=== PATIENT | female | born 1990 | race Caucasian/White ===

== ENCOUNTER 2016-12-23 08:07 | Emergency (ER) | payer SELFPAY ==
[2016-12-23 08:29] VITALS: BP 120/68
--- NOTE | 2016-12-23 09:50 | UC ---
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 It started last night. Laying down hurts. i can't lay on my side, walking, going over bumps when I'm driving. ... diarrhea." Constant sharp "feels like I'm getting stabbed" pain under belly button and two episodes of diarrhea for one day. Patient is concerned she may have a hernia after lifting an ice bucket at work; pain started two to three hours later. Denies fever, nausea, vomiting, or urinary symptoms. 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 Has mirena IUD. pain started about 1 hr after finishing work. escalating. started as 3-4/10 and now 7-8/10. constant, sharp pain. appetite is fine. was able to eat breakfast w/ o a problem. no n/v. still has appendix. no fevers. - History of Current Complaint Chief Complaint: UCAbdominalPain Stated Complaint: ABD PAIN Time Seen by Provider: 12/23/16 08:43 Hx Last Menstrual Period: "I don't really get 'em." Mirena IUD Allergies/Adverse Reactions: Allergies Allergy/AdvReac Type Severity Reaction Status Date / Time Penicillins Allergy Unknown Verified 12/23/16 08:26 Reaction Details METAL Allergy Rash Uncoded 12/23/16 08:26 PMH/Surg Hx/FS Hx/Imm Hx Previously Healthy: Yes - Surgical History Surgical History: None - Family History Known Family History: Negative: Cardiac Disease, Hypertension, Diabetes - Social History Alcohol Use: Rare Substance Use Type: None Smoking Status (MU): Heavy Every Day Tobacco Smoker Type: Cigarettes Amount Used/How Often: 1/2 PPD Length of Time of Smoking/Using Tobacco: Since Age 20 Have You Smoked in the Last Year: Yes Household Exposure Type: Cigarettes - Immunization History Most Recent Influenza Vaccination: Not the 2016/2017 Season Review of Systems Constitutional: Negative Skin: Negative Eyes: Negative ENT: Negative Respiratory: Negative Cardiovascular: Negative Gastrointestinal: Abdominal Pain Genitourinary: Negative Motor: Negative Neurovascular: Negative Musculoskeletal: Negative Neurological: Negative Psychological: Negative Is Patient Immunocompromised?: No All Other Systems Reviewed And Are Negative: Yes Physical Exam Triage Information Reviewed: Yes Appearance: Well-Appearing, No Pain Distress, Well-Nourished - smiling, able to get up from chair, ambulate and get on exam table w/o any difficulty. Vital Signs: Initial Vital Signs Temp 98.5 F 12/23/16 08:22 Pulse 82 12/23/16 08:22 Resp 16 12/23/16 08:22 BP 120/68 12/23/16 08:22 Pulse Ox 100 12/23/16 08:22 Vital Signs Reviewed: Yes Eye Exam: Normal ENT Exam: Normal ENT: Positive: Normal ENT inspection, Pharynx normal Dental Exam: Normal Neck exam: Normal Neck: Positive: Supple, Nontender, No Lymphadenopathy Respiratory Exam: Normal Respiratory: Positive: Lungs clear, Normal breath sounds, No respiratory distress Cardiovascular Exam: Normal Cardiovascular: Positive: RRR, No Murmur, Pulses Normal, Brisk Capillary Refill Abdomen Description: Positive: Soft, Other: - tender only at umbilicus with deep palp. NT in RLQ, RUQ. LLQ and LUG and suprapubic area.. Negative: CVA Tenderness (R), CVA Tenderness (L), Distended - tender only at umbilicus with deep palp. NT in RLQ, RUQ, LLQ and LUQ and suprapubic area., Guarding, Hernia @ , Peritoneal Signs, Splenomegaly Musculoskeletal Exam: Normal Neurological Exam: Normal Psychological Exam: Normal Skin Exam: Normal Abd Pain Female Course/Dx - Course Course Of Treatment: Needs further evaluation & testing that is NA at this facility based on the level of pain and escalation of sudden sx. She declines ambulance. GM came in case she needed a ride and is very agreeable to going to ER directly from the facility from here. declines ambulance ride and understands her risks of delay in dx and worsening sx, permanent disability and w/ potential of MVA and delay in trx. she is agreeable. - Differential Dx/Diagnosis Differential Diagnosis: Appendicitis, Constipation, Ectopic , Ovarian Cyst, Pelvic Inflammatory Disease, Peptic Ulcer Disease, Other - ectopic Provider Diagnoses: umbilical abdominal pain - Physician Notification/Consults Discussed Care of Patient With: s/w Varsha Lynn NP in [facility] ER @ 10:05 AM Discharge - Discharge Plan Condition: Good Disposition: OTHER Discharge Disposition Comment: To ER via private car. she prefers [facility]. records faxed to ER. Patient Education Materials: Acute Abdominal Pain (ED) Referrals: No Primary Care Phys,NOPCP [Primary Care Provider] - [facility] [Provider Group] - 2 Days Additional Instructions: You have been instructed to go to the emergency room for further evaluation and have declined going by ambulance, and stated that your grandmother who is with you will be driving you. Please go directly to the ER. Do not eat or drink anything until you are instructed that you can by the ER as they may be doing some tests that require you to be fasting. You must be made aware of risks and worsening condition, permanent disability and even fatality by going via private car, for instance a car accident that may delay your treatment.
== END 2016-12-23 10:13 ==
LOC: UCCORT 08:07
DX: R10.33 Periumbilical pain (principal); Z88.0 Allergy status to penicillin; Z91.048 Other nonmedicinal substance allergy status; F17.210 Nicotine dependence, cigarettes, uncomplicated
CPT/HCPCS: 81003; 84702; 99212; G0463

== ENCOUNTER 2018-05-17 14:41 | Emergency (ER) | payer MEDICAID ==
[2018-05-17 15:29] VITALS: BP 125/57
--- NOTE | 2018-05-17 16:21 | UC ---
Throat Pain/Nasal Gene HPI - HPI Summary HPI Summary: 27-year-old female presents with onset of painful, tender, swollen lymph node to the left anterior neck this morning. Denies fever, chills, nasal congestion , sore throat, dysphagia, cough, chest pain, or shortness of breath. States she is 6 weeks . - History of Current Complaint Chief Complaint: UCRespiratory Stated Complaint: SWOLLEN GLANDS Time Seen by Provider: 05/17/18 15:48 Hx Obtained From: Patient Hx Last Menstrual Period: "I don't really get 'em." Mirena IUD Pain Intensity: 2 - Allergies/Home Medications Allergies/Adverse Reactions: Allergies Allergy/AdvReac Type Severity Reaction Status Date / Time Penicillins Allergy Unknown Verified 05/17/18 15:24 Reaction Details METAL Allergy Rash Uncoded 05/17/18 15:24 Home Medications: Home Medications NK [No Home Medications Reported] 05/17/18 [History Confirmed 05/17/18] PMH/Surg Hx/FS Hx/Imm Hx Previously Healthy: Yes - Denies significant PMH - Surgical History Surgical History: None - Family History Known Family History: Negative: Cardiac Disease, Hypertension, Diabetes - Social History Occupation: Employed Full-time Lives: Alone Alcohol Use: None Substance Use Type: None Smoking Status (MU): Former Smoker Type: Cigarettes Amount Used/How Often: 1/2 PPD Length of Time of Smoking/Using Tobacco: Since Age 20 Have You Smoked in the Last Year: Yes Household Exposure Type: Cigarettes - Immunization History Most Recent Influenza Vaccination: Not the 2017/2017 Season Review of Systems All Other Systems Reviewed And Are Negative: Yes Constitutional: Negative: Fever, Chills Skin: Negative: Rash Eyes: Negative: Drainage, Eye Redness ENT: Negative: Sore Throat, Ear Ache, Nasal Discharge, Sinus Congestion, Sinus Pain/Tenderness Respiratory: Negative: Shortness Of Breath, Cough Cardiovascular: Positive: Negative Gastrointestinal: Positive: Negative Genitourinary: Positive: Negative Musculoskeletal: Positive: Negative Neurological: Positive: Negative Is Patient Immunocompromised?: No Physical Exam - Summary Physical Exam Summary: GENERAL APPEARANCE: Well developed, well nourished, alert and cooperative, and appears to be in no acute distress. EYES: Conjunctiva clear. No drainage. Vision is grossly intact. EARS: External auditory canals and tympanic membranes clear, hearing grossly intact. NOSE: No nasal congestion or discharge. THROAT: Pharynx normal. No tonsilar inflammation, swelling, exudate, or lesions. Uvula midline. Oral cavity normal. Teeth and gingiva in good general condition. NECK: Neck supple. Single, tender left anterior lymph node. CARDIAC: Normal S1 and S2. No S3, S4 or murmurs. Rhythm is regular. There is no peripheral edema, cyanosis or pallor. Extremities are warm and well perfused. Capillary refill is less than 2 seconds. Peripheral pulses intact. LUNGS: Clear to auscultation without rales, rhonchi, wheezing or diminished breath sounds. ABDOMEN: Positive bowel sounds. Soft, nondistended, nontender. No guarding or rebound. No masses or hepatosplenomegally. MUSKULOSKELETAL: ROM intact to all extremities. No joint erythema or tenderness. Normal muscular development. Normal gait. SKIN: Skin normal color, texture and turgor with no lesions or eruptions. Triage Information Reviewed: Yes Vital Signs: Initial Vital Signs Temp 97.7 F 05/17/18 15:25 Pulse 80 05/17/18 15:25 Resp 16 05/17/18 15:25 BP 125/57 05/17/18 15:25 Pulse Ox 100 05/17/18 15:25 Vital Signs Reviewed: Yes Throat Pain/Nasal Course/Dx - Course Course Of Treatment: 27-year-old female presents with onset of painful, tender, swollen lymph node to the left anterior neck this morning. Denies fever, chills , nasal congestion, sore throat, dysphagia, cough, chest pain, or shortness of breath. States she is 6 weeks . Afebrile. Vital signs stable. Exam reveals a young adult female in no acute distress with a single tender, enlarged left anterior cervical lymph node an otherwise unremarkable exam. Rapid strep test was negative. Suspect may be related to a viral infection. Recommending symptomatic treatment at this time. She is to return here or follow up with her primary care provider if symptoms persist. Anticipatory guidance and warning symptoms are reviewed with the patient. Verbalizes understanding and agrees with plan of care. - Differential Dx/Diagnosis Differential Diagnosis/HQI/PQRI: Mononucleosis, Pharyngitis, Tonsillitis, URI Provider Diagnosis: Enlarged lymph node in neck Discharge - Sign-Out/Discharge Documenting (check all that apply): Patient Departure All imaging exams completed and their final reports reviewed: No Studies - Discharge Plan Condition: Stable Disposition: HOME Patient Education Materials: Lymphadenopathy (ED) Referrals: Fatimah Birch MD [Primary Care Provider] - 5 Days (Follow up in 5-7 days if no improvement in symptoms.) Additional Instructions: Your rapid strep test in the clinic today was negative. Your symptoms are likely from a viral infection. Viral infections do not respond to antibiotics and are limited to the treatment of symptoms. Viral infections typically run their course in 7-10 days. Drink plenty of fluids. Use salt water gargles several times a day if you have any sore throat. Take over the counter acetaminophen (Tylenol) according to directions as needed for pain or fever. Return here or follow up with your primary care provider in 5-7 days if symptoms persist. Seek immediate medical attention in the emergency room if you have fever greater than 100.5 F despite taking acetaminophen or ibuprofen, are unable to swallow or develop drooling, are unable to open your mouth fully, are unable to eat or drink, have pain that is not relieved with over the counter pain medication, or have any difficulty breathing. - Billing Disposition and Condition Condition: STABLE Disposition: Home
== END 2018-05-17 16:43 | disposition home or self-care (01) ==
LOC: UCCORT 14:41
DX: R59.0 Localized enlarged lymph nodes (principal); Z88.0 Allergy status to penicillin; Z91.09 Other allergy status, other than to drugs and biological substances; Z87.891 Personal history of nicotine dependence
CPT/HCPCS: 87651; 99211; G0463

== ENCOUNTER 2021-10-05 15:20 | Inpatient (IN) ==
[2021-10-05] MEDS ORDERED: Lactated Ringers 1000 ml BAG 1,000 ML IV ONE ×2 (16:02→20:40)
[2021-10-05] MEDS ORDERED: Buffered Lidocaine 1% SYRIN 1 ml INTRADERM ONE (16:02)
[2021-10-05 16:31] LABS: ABS Eosinophils 0.1 10^3/ul (0-0.6); ABS Lymphocytes 1.9 10^3/ul (1.0-4.8); ABS Monocytes 1.4 10^3/ul (0-0.8); ABS Neutrophils 16.4 10^3/ul (1.5-7.7); Eosinophil % 0.3 %; Hematocrit 35 % (35-47); Hemoglobin 11.6 g/dL (12.0-16.0); Lymphocyte % 9.6 %; Mean Corpuscular HGB Conc 33 g/dL (31-36); Mean Corpuscular Hemoglobin 28 pg (27-31); Mean Corpuscular Volume 84 fL (80-97); Mean Platelet Volume 10.8 fL (7.4-10.4); Nucleated Red Blood Cells % 0.1; Platelet Count 150 10^3/uL (150-450); Red Blood Count 4.19 10^6 /uL (3.70-4.87); Red Cell Distribution Width 13 % (10-15); White Blood Count 19.8 10^3/uL (3.5-10.8)
[2021-10-05 16:53] LABS: Urine Benzodiazepine Screen None Detected (None Detect); Urine Cannabinoids Screen None Detected (None Detect); Urine Opiates Screen None Detected (None Detect)
[2021-10-05] MEDS ORDERED: Lactated Ringers 1000 ml BAG 1,000 ML IV SCH ×2 (17:00→21:00)
[2021-10-05] MEDS ORDERED: OBEPIDURAL (200 ML) 200 ML EPIDURAL ONE (18:06)
[2021-10-05] MEDS ORDERED: Lidocaine 1% w EPI 1:200,000 SDV 30 ML VIAL ONE ×2 (18:07→19:03)
[2021-10-05] MEDS ORDERED: Sodium Citrate/Citric Acid LIQ 15 ML UDC PO PRN (20:40)
[2021-10-05] MEDS ORDERED: Phenylephrine 40 mcg/mL 10mL (400mcg) SYRINGE IV PUSH PRN ×2 (20:40)
[2021-10-05 20:42] LABS: Urine Appearance Clear; Urine Color Yellow; Urine Ketones 1+ (15mg/dL) (Negative); Urine Protein 1+ (30 mg/dL) (Negative); Urine Specific Gravity 1.025 (1.005-1.030); Urine Urobilinogen 1.0 (Negative) (Negative); Urine pH 6.5 (5.0-9.0)
[2021-10-05 20:43] LABS: Urine Bilirubin Negative (Negative); Urine Blood Trace (Intact) (Negative); Urine Glucose Negative (Negative); Urine Nitrite Negative (Negative)
[2021-10-05 20:55] LABS: Urine Bacteria 1+ (Absent); Urine Red Blood Cell 3+(>10/hpf) (Absent); Urine Squamous Epithelial Cell Present (Absent); Urine Transitional Epithelial Present (Absent); Urine White Blood Cell 1+(6-10/hpf) (Absent)
[2021-10-05] MEDS ORDERED: OBEPIDURAL (200 ML) 200 ML EPIDURAL SCH (21:00)
[2021-10-06] MEDS ORDERED: Oxytocin in LR 20 UNITS/1,000 ML BAG IVPB ONE (00:20)
[2021-10-06] MEDS ORDERED: Witch Hazel PAD JAR TOPICAL PRN (07:08)
[2021-10-06] MEDS ORDERED: Dibucaine 1% OINT 28.35 GM TUBE PR PRN (07:08)
[2021-10-06] MEDS ORDERED: Oxytocin in LR 20 UNITS/1,000 ML BAG IVPB SCH (08:00)
[2021-10-06] MEDS ORDERED: Lactated Ringers 1000 ml BAG 1,000 ML IV SCH (08:00)
[2021-10-07 03:33] VITALS: BP 113/71
[2021-10-07 06:44] LABS: ABS Basophils 0.1 10^3/ul (0-0.2); ABS Eosinophils 0.2 10^3/ul (0-0.6); ABS Lymphocytes 2.9 10^3/ul (1.0-4.8); ABS Monocytes 1.1 10^3/ul (0-0.8); ABS Neutrophils 14.6 10^3/ul (1.5-7.7); Eosinophil % 1.2 %; Hematocrit 29 % (35-47); Hemoglobin 9.9 g/dL (12.0-16.0); Lymphocyte % 15.2 %; Mean Corpuscular HGB Conc 34 g/dL (31-36); Mean Corpuscular Hemoglobin 29 pg (27-31); Mean Corpuscular Volume 86 fL (80-97); Mean Platelet Volume 10.5 fL (7.4-10.4); Platelet Count 138 10^3/uL (150-450); Red Blood Count 3.42 10^6 /uL (3.70-4.87); Red Cell Distribution Width 13 % (10-15); White Blood Count 18.8 10^3/uL (3.5-10.8)
[2021-10-07] MEDS ORDERED: Measles, Mumps,Rubella VACC 0.5 ML/VIAL SUBCUT ONE (09:00)
== END 2021-10-07 14:52 | disposition home or self-care (01) | DRG 560 ==
LOC: MCHOBOUT 15:20 → MCHOB 16:01
PROVIDERS: ADMIT Midwife; ATTEND Midwife